=== PATIENT | female | born 1980 | race Caucasian/White ===

== ENCOUNTER 2020-05-31 06:34 | Emergency (ER) | payer OTHER ==
[~2020-05-31] VITALS: Ht 170.2 cm; Wt 95.3 kg
[2020-05-31] MEDS ORDERED: GLUMETZA500 (06:45)
[2020-05-31] MEDS ORDERED: MINIVELLE1 EAC1 (06:46)
[2020-05-31] MEDS ORDERED: LEXAPRO (06:46)
[2020-05-31] MEDS ORDERED: TELMISARTAN (06:46)
[2020-05-31] MEDS ORDERED: LYRICA (06:47)
[2020-05-31] MEDS ORDERED: AMLODIPINE (06:47)
[2020-05-31] MEDS ORDERED: TOUJEO MAX300 UNIT/1 (06:47)
[2020-05-31 08:08] VITALS: BP 136/78
== END 2020-05-31 08:08 | disposition home or self-care (01) ==
LOC: M.ERS 06:34
DX: H92.02 Otalgia, left ear (principal); Z20.828 Contact with and (suspected) exposure to other viral communicable diseases; E11.9 Type 2 diabetes mellitus without complications; I10 Essential (primary) hypertension; E78.00 Pure hypercholesterolemia, unspecified; Z88.6 Allergy status to analgesic agent; Z88.5 Allergy status to narcotic agent; Z79.4 Long term (current) use of insulin